=== PATIENT | female | born 1925 | race Caucasian/White ===

== ENCOUNTER → 2016-05-17 | Outpatient (CLI) | payer OTHER ==
[~2016-05-17] MED LIST: ACET-1311 PO; AMLO-110 PO; ASPI81TA28 PO; BIOT1TAB5 PO; CALC-20 PO; CLC100X PO; CYAN100020 PO; DONE10TA12 PO; EFF75 PO; GLGKIT; HALO5INJ IM; HYDR-5688 PO; IBUP-1050 PO; INSDGI SC; INSUINJ4 SC; INSUINJ4 SQ; IPRASOL4 INH; LOSA50TA54 PO; LPT/40 PO; MELA3CAP PO; MOML PO; NMN5 PO; QUET1TAB30 PO; SKINCRE42 TOP; TRAM-10 PO; TRIA75TA53 PO; VENL150T33 PO; VENL37.593 PO; VITAOIN TOP
[2016-05-17 08:48] LABS: BASO % 0.4 %; BASO ABS # 0.04 K/uL (0-0.2); COMPLETE YES; HEMATOCRIT 38.4 % (37-47); IG% 0.2 %; LYMPH % 14.5 %; LYMPH ABS # 1.55 K/uL (1.2-3.4); MEAN CELL VOLUME 98.2 fL (80-100); MEAN CORPUSCULAR HEMOGLOBIN 32.7 pg (25-34); MEAN CORPUSCULAR HGB CONC 33.3 g/dl (32-36); MEAN PLATELET VOLUME 12.2 fL (7.4-10.4); MONO % 11.4 %; NEUT % 70.5 %; PLATELET COUNT 438 K/uL (130-400); RED BLOOD COUNT 3.91 M/uL (4.2-5.4); WHITE BLOOD COUNT 10.72 K/uL (4.8-10.8)
[2016-05-17 09:06] LABS: BLOOD UREA NITROGEN 30 mg/dl (7-18); BUN/CREATININE RATIO 21.7 (10-20); CALCIUM 9.7 mg/dl (8.5-10.1); CARBON DIOXIDE 25 mmol/L (21-32); CHLORIDE 104 mmol/L (98-107); GLUCOSE 129 mg/dl (70-99); POTASSIUM 3.7 mmol/L (3.5-5.1); SODIUM 142 mmol/L (136-145)
== END ==
LOC: C.LABUPHEI 12:40
PROVIDERS: ATTEND Family Medicine
DX: F01.51 Vascular dementia, unspecified severity, with behavioral disturbance (principal); S82.90XA Unspecified fracture of unspecified lower leg, initial encounter for closed fracture; X58.XXXA Exposure to other specified factors, initial encounter

== ENCOUNTER 2016-05-19 13:12 | Inpatient (IN) | payer OTHER ==
[~2016-05-19] VITALS: Ht 160 cm; Wt 71.1 kg
[~2016-05-19 13:12] MED LIST changes: -ACET-1311 PO; -AMLO-110 PO; -CLC100X PO; -EFF75 PO; -GLGKIT; -HALO5INJ IM; -HYDR-5688 PO; -INSDGI SC; -IPRASOL4 INH; -MELA3CAP PO; -MOML PO; -TRAM-10 PO
[2016-05-19] MEDS ORDERED: SODIUM CHLORIDE 0.9% 500ML 500 ML IV STA (13:51)
[2016-05-19] MEDS ORDERED: HALO5INJ IM (14:05)
[2016-05-19] MEDS ORDERED: ACET-1311 PO (14:05)
[2016-05-19] MEDS ORDERED: AMLO-110 PO (14:05)
[2016-05-19] MEDS ORDERED: GLGKIT (14:05)
[2016-05-19] MEDS ORDERED: EFF75 PO (14:05)
[2016-05-19] MEDS ORDERED: HYDR-5688 PO (14:05)
[2016-05-19] MEDS ORDERED: TRAM-10 PO (14:05)
[2016-05-19] MEDS ORDERED: INSDGI SC ×2 (14:05)
[2016-05-19] MEDS ORDERED: MELA3CAP PO (14:05)
[2016-05-19] MEDS ORDERED: CLC100X PO (14:05)
[2016-05-19] MEDS ORDERED: MOML PO (14:05)
[2016-05-19] MEDS ORDERED: IPRASOL4 INH (14:05)
--- NOTE | 2016-05-19 14:14 | DIAGNOSTIC IMAGING REPORT ---
CHEST ONE VIEW PORTABLE CLINICAL HISTORY: fever SHORTNESS OF BREATH COMPARISON STUDY: 03/06/2016 FINDINGS: The heart is borderline enlarged. There is diffuse elevation of the interstitium. The findings are consistent with either interstitial edema or a bilateral interstitial inflammatory process. Clinical and radiographic follow-up is recommended.[ IMPRESSION: Diffuse elevation of the interstitium, consistent with interstitial pulmonary edema, or a bilateral interstitial inflammatory process. Clinical and radiographic follow-up is recommended. Electronically signed by: Hasmukh Tolliver M.D. 05/19/2016 2:12 PM Dictated Date/Time: 05/19/2016 2:10 PM
[2016-05-19 14:33] LABS: ISTAT CREATININE 1.5 mg/dl (0.6-1.3); ISTAT HEMOGLOBIN 11.9 g/dl (12.0-16.0); ISTAT IONIZED CALCIUM 1.13 mmol/l (1.12-1.32)
[2016-05-19 14:38] LABS: HEMATOCRIT 36.9 % (37-47); MEAN CELL VOLUME 98.1 fL (80-100); MEAN CORPUSCULAR HEMOGLOBIN 32.2 pg (25-34); MEAN CORPUSCULAR HGB CONC 32.8 g/dl (32-36); MEAN PLATELET VOLUME 11.5 fL (7.4-10.4); PLATELET COUNT 380 K/uL (130-400); RED BLOOD COUNT 3.76 M/uL (4.2-5.4); WHITE BLOOD COUNT 23.89 K/uL (4.8-10.8)
[2016-05-19] MEDS ORDERED: CEFEPIME IV 1,000 MG in DEXTROSE 5% 100ML 100 ML IV STA (14:46)
[2016-05-19 14:51] LABS: BUN/CREATININE RATIO 19.9 (10-20); CALCIUM 9.7 mg/dl (8.5-10.1); CREATININE 1.6 mg/dl (0.60-1.20); MAGNESIUM 2.1 mg/dl (1.8-2.4); POTASSIUM 4.1 mmol/L (3.5-5.1)
[2016-05-19 14:52] LABS: PROTHROMBIN TIME (PATIENT) 11.1 SECONDS (9.0-12.0)
[2016-05-19 14:56] LABS: CKMB/CK RATIO 1.2 (0-3.0)
[2016-05-19] MEDS ORDERED: LEVAQUIN 500MG / 100ML D5W IV ONE (15:00)
[2016-05-19 15:11] LABS: BASO % 0.1 %; BASO ABS # 0.03 K/uL (0-0.2); COMPLETE YES; DOHLE BODIES OCCASIONAL; IG% 0.4 %; LYMPH % 2.7 %; LYMPH ABS # 0.64 K/uL (1.2-3.4); MONO % 7.5 %; NEUT % 89.3 %; VACUOLIZATION 1+
[2016-05-19] MEDS ORDERED: HEPARIN SOD 5000 UNIT/0.5 ML CARP SQ SCH (16:30)
[2016-05-19] MEDS ORDERED: HydrALAZINE HCL 20 MG/ML VIAL IV. PRN (16:30)
[2016-05-19] MEDS ORDERED: ALBUT/IPRATROP 3MG/0.5MG NEB 3 ML VIAL INH PRN (16:30)
[2016-05-19] MEDS ORDERED: POLYETHYLENE (MIRALAX) 17 GM PACK PO PRN (16:30)
[2016-05-19] MEDS ORDERED: MAGNESIUM HYDROXIDE SUSP 30 ML UDC PO PRN (16:30)
[2016-05-19] MEDS ORDERED: LEVOFLOXACIN / D5W 750 MG in PREMIXED IN D5W 150 ML IV SCH (16:30)
[2016-05-19] MEDS ORDERED: ONDANSETRON INJ 2 MG/ML 2 ML VIAL IV PRN (16:30)
[2016-05-19] MEDS ORDERED: ALUMINUM/MAGNESIUM/SIMETH (MAALOX MAX) 30 ML UDC PO PRN (16:30)
--- NOTE | 2016-05-19 17:11 | History and Physical ---
History & Physical Date & Time of Service: May 19, 2016 at 16:40 Chief Complaint: Shortness Of Breath Primary Care Physician: Shy Alberto History of Present Illness Source: family Patient is an 89 y/o female, with PMHx of HTN, DM, dementia, and depression, who presented to the ED because of chest congestion and fever since 05/17. History came from patient's daughter due to patient's mental status. Patient is a resident of [facility]. On Wednesday (05/17), patient started to experience chest congestion and a cough. +fever. Per family, patient was a resident of [facility] in February. At that time, patient was doing very well- eating, having conversations, and ambulating. Patient experienced a fibula fracture and was then transferred to [facility] mid March. Since that time, patient has been quickly declining. All she does is lay in bed and sleep. Per daughter, she has not had a conversation with patient since being transferred to [facility]. Family believes this is due to overdosing of Haldol. Patient follows with Dr. Ramirez for her dementia- daughter spoke with Dr. Ramirez and was instructed to discontinue Haldol. [facility] has been made aware and medication was discontinued on 05/15. No significant changes have been noted with the patient. Family does NOT want patient to receive Haldol. Per family, patient has not been complaining of any pain. With her fibula fracture, she would grab her leg and states it hurts. Patient followed up with Dr. Calvo ~2 weeks ago and was told everything "looks great." ROS could not be obtained due to patient' s status. Past Medical/Surgical History 1. HTN 2. DM 3. Dementia 4. Depression Family History No pertinent family history Social History Smoking Status: Never Smoker Drug Use: none Marital Status: Occupational Status: retired Immunizations History of Influenza Vaccine: Yes Influenza Vaccine Date: Mar 09, 2012 History of Tetanus Vaccine?: Yes History of Pneumococcal: daughter states unknown; will check with family Dr History of Hepatitis B Vaccine: No Multi-Drug Resistant Organisms History of MDRO: No Allergies Coded Allergies: Sulfa Antibiotics (Verified Allergy, Unknown, UNKNOWN, 05/19/16) Home Medications Scheduled Acetaminophen (Tylenol), 650 MG PO Q6H Amlodipine (Norvasc), 5 MG PO BID Aspirin (Aspirin Ec), 81 MG PO DAILY Biotin (Biotin), 1,000 MCG PO TID Calcium Carbonate-Vitamin D (Calcium 600 + D), 1 TAB PO DAILY Cyanocobalamin (Vitamin B12), 1,000 MCG PO DAILY Docusate Sodium (Docusate Sodium), 100 MG PO BID Donepezil Hydrochloride (Aricept), 10 MG PO DAILY Insulin Glargine (Lantus), 35 UNITS SC QPM Insulin Glargine (Lantus), 45 UNIT SC DAILY Ipratropium-Albuterol (Duoneb), 1 TREATMENT INH Q4H Losartan Potassium (Cozaar), 50 MG PO DAILY Melatonin (Melatonin), 3 MG PO HS Memantine (Namenda), 5 MG PO BID Quetiapine Fumarate (Seroquel), 12.5 MG PO HS Venlafaxine Hcl (Effexor), 75 MG PO TID Scheduled PRN Haloperidol Lactate (Haldol), 5 MG IM Q6H PRN for Agitation Hydrocodone/Acetaminophen 5MG/325MG ([place] 5MG/325MG), 2 TABLETS PO Q6H PRN for Pain Magnesium Hydroxide (Milk Of Magnesia), 30 ML PO for Constipation Tramadol (Ultram), 50 MG PO Q4H PRN for Pain Miscellaneous Medications Glucagon (Glucagon Emergency Kit) Physical Exam Vital Signs Date Time Temp Pulse Resp B/P Pulse Ox O2 Delivery O2 Flow Rate FiO2 05/19/16 14:56 90 26 151/65 94 Room Air 05/19/16 13:33 81 05/19/16 13:31 38.7 86 22 163/58 92 Room Air General Appearance: no apparent distress Head: normocephalic, atraumatic Eyes: PERRL ENT: + pertinent finding (gargling) Neck: supple Respiratory/Chest: no respiratory distress, no accessory muscle use Cardiovascular: regular rate, rhythm, no edema Abdomen/GI: normal bowel sounds, non tender, soft Extremities/Musculoskelatal: no pedal edema Neurologic/Psych: + disoriented, + pertinent finding (lies in bed yelling " help me", spontaneously opens eyes ) Skin: normal color, warm/dry, no rash Diagnostics Laboratory Results Results Past 24 Hours Test 05/19/16 14:00 05/19/16 14:10 1/24/17 14:13 05/19/16 14:17 Range/Units Influenza Type A Antigen Neg for Influ A NEG Influenza Type B Antigen Neg for Influ B NEG White Blood Count 23.89 4.8-10.8 K/uL Red Blood Count 3.76 4.2-5.4 M/uL Hemoglobin 12.1 12.0-16.0 g/dL Hematocrit 36.9 37-47 % Mean Corpuscular Volume 98.1 80-100 fL Mean Corpuscular Hemoglobin 32.2 25-34 pg Mean Corpuscular Hemoglobin Concent 32.8 32-36 g/dl Platelet Count 380 130-400 K/uL Mean Platelet Volume 11.5 7.4-10.4 fL Neutrophils (%) (Auto) 89.3 % Lymphocytes (%) (Auto) 2.7 % Monocytes (%) (Auto) 7.5 % Eosinophils (%) (Auto) 0.0 % Basophils (%) (Auto) 0.1 % Neutrophils # (Auto) 21.35 1.4-6.5 K/uL Lymphocytes # (Auto) 0.64 1.2-3.4 K/uL Monocytes # (Auto) 1.78 0.11-0.59 K/uL Eosinophils # (Auto) 0.00 0-0.5 K/uL Basophils # (Auto) 0.03 0-0.2 K/uL RDW Standard Deviation 48.1 36.4-46.3 fL RDW Coefficient of Variation 13.5 11.5-14.5 % Immature Granulocyte % (Auto) 0.4 % Immature Granulocyte # (Auto) 0.09 0.00-0.02 K/uL Toxic Vacuolation 1+ Dohle Bodies OCCASIONAL Prothrombin Time 11.1 9.0-12.0 SECONDS Prothromb Time International Ratio 1.0 0.9-1.1 Sodium Level 138 136-145 mmol/L Potassium Level 4.1 3.5-5.1 mmol/L Chloride Level 100 98-107 mmol/L Carbon Dioxide Level 24 21-32 mmol/L Anion Gap 14.0 11.0 16-25 mmol/L Blood Urea Nitrogen 32 7-18 mg/dl Creatinine 1.60 0.60-1.20 mg/dl Est Creatinine Clear Calc Drug Dose 23.3 ml/min Estimated GFR () 33.0 Estimated GFR (Non- 28.5 BUN/Creatinine Ratio 19.9 10-20 Random Glucose 143 70-99 mg/dl Calcium Level 9.7 8.5-10.1 mg/dl Magnesium Level 2.1 1.8-2.4 mg/dl Total Bilirubin 0.4 0.2-1 mg/dl Direct Bilirubin 0.2 0-0.2 mg/dl Aspartate Amino Transf (AST/SGOT) 28 15-37 U/L Alanine Aminotransferase (ALT/SGPT) 27 12-78 U/L Alkaline Phosphatase 78 45-117 U/L Total Creatine Kinase 233 26-192 U/L Creatine Kinase MB 2.9 0.5-3.6 ng/ml Creatine Kinase MB Ratio 1.2 0-3.0 Troponin I 0.027 0-0.045 ng/ml Pro-B-Type Natriuretic Peptide 3960 0-1800 pg/ml Total Protein 6.7 6.4-8.2 gm/dl Albumin 2.8 3.4-5.0 gm/dl Bedside Lactic Acid Venous 2.89 0.90-1.70 mmol/L Bedside Hemoglobin 11.9 12.0-16.0 g/dl Bedside Hematocrit 35 37-47 % Bedside Sodium 135 135-144 mEq/L Bedside Potassium 4.2 3.3-5.0 mEq/L Bedside Chloride 104 101-112 mEq/L Bedside Total CO2 25 24-31 mEq/l Bedside Blood Urea Nitrogen 28 7-18 mg/dl Bedside Creatinine 1.5 0.6-1.3 mg/dl Bedside Glucose (other) 149 70-99 mg/dl Bedside Ionized Calcium (Karel) 1.13 1.12-1.32 mmol/l Microbiology Results 05/19/16 Blood Culture, Received Pending 05/19/16 Blood Culture, Received Pending 05/19/16 Urine Culture, Received Pending Diagnostic Radiology CHEST ONE VIEW PORTABLE CLINICAL HISTORY: fever SHORTNESS OF BREATH COMPARISON STUDY: 03/06/2016 FINDINGS: The heart is borderline enlarged. There is diffuse elevation of the interstitium. The findings are consistent with either interstitial edema or a bilateral interstitial inflammatory process. Clinical and radiographic follow-up is recommended.[ IMPRESSION: Diffuse elevation of the interstitium, consistent with interstitial pulmonary edema, or a bilateral interstitial inflammatory process. Clinical and radiographic follow-up is recommended. Electronically signed by: Hasmukh Tollievr M.D. 05/19/2016 2:12 PM Dictated Date/Time: 05/19/2016 2:10 PM The status of this report is Signed. Draft = Not yet reviewed or approved by Radiologist. Signed = Reviewed and approved by Radiologist. EKG SMITA MOSELEY ID:[id number] 19-MAY-2016 14:10:53 [facility] Poor data quality, interpretation may be adversely affected Sinus rhythm with sinus arrhythmia with frequent , and consecutive Premature ventricular complexes ST & T wave abnormality, consider lateral ischemia Abnormal ECG When compared with ECG of 06-MAR-2016 04:34, Premature ventricular complexes are now Present 25mm/s 10mm/mV 150Hz 8.0 SP2 12SL 241 HD DYANA: 12 Referred by: Shy Cabreraglenn Unconfirmed Vent. rate 82 BPM NJ interval 148 ms QRS duration 82 ms QT/QTc 368/429 ms P-R-T axes 54 21 119 1927 (89 yr) Female Room: Loc:15 Studio Assistant:HUBER Rosenberg ind: Impression Assessment and Plan 89 y/o female, with PMHx of HTN, DM, dementia, and depression, who presented to the ED because of chest congestion and fever since 05/17 Elevated WBC and lactic acid, ?pulmonary source: - Admit med/surg - IV Levaquin + Zosyn - IV NSS @ 100ml/hr x1 bag - CXR- Diffuse elevation of the interstitium, consistent with interstitial pulmonary edema, or a bilateral interstitial inflammatory process -- Repeat CXR tomorrow AM - Diet- pureed with aspiration precautions - Lactic acid of 2.89 on admission, repeat - Influenza negative - MRSA swab - Follow CBC and PRP - Pending blood cultures - Pending U/A - Airway suction q4 hrs PRN HTN: - Continue Norvasc 5 mg PO daily - Hydralazine 10 mg IV PRN for SBP >170 or DBP >100 Dementia: - Continue Aricept 10 mg PO daily - Continue Namenda 5 mg PO BID - Continue Seroquel 12.5 mg PO HS - FAMILY DOES NOT WANT PATIENT TO RECEIVE HALDOL - Consult psychiatry, appreciate recommendations. Patient follows with Dr. Ramirez DM: - Continue Lantus 45 units SC daily - BSG ACHS - Sliding insulin scale Depression: - Continue Effexor 75 mg PO TID GI Prophylaxis: -Maalox PRN -IV Zofran PRN -Colace and/or Milk of Mag PRN DVT prophylaxis: -Heparin 5000 units SQ q12 hrs -CONCEPCION and SCDs Code Status: - LEVEL V, DNR/DNI Dispo: - From [facility]- family very unhappy with care. Family has been in contact with [place] to possibly get transferred there. Consult social worker clinical - Family is considering hospice- consult palliative care. At this time, family wants to continue patient's medications, OK with IV hydration and IV antibiotics Level of Care Med/Surg Resuscitation Status DO NOT RESUSCITATE VTE Prophylaxis VTE Risk Assessment Done? Y/N: Yes Risk Level: Moderate Given or contraindicated: Unfractionated heparin SQ, T.E.D. Stockings, SCD's
[2016-05-19] MEDS: SODIUM CHLORIDE 0.9% 1000ML 1,000 ML IV ONE ×2 (17:15→20:40)
[2016-05-19] MEDS ORDERED: PIPERACILL/TAZOBAC CONSULT ACTIVE PRN (17:45)
[2016-05-19 19:45] VITALS: BP 140/48; PULSE 76; TEMP 37.3; O2SAT 95; Ht 160 cm; Wt 71.1 kg
[2016-05-19] MEDS ORDERED: PIPERACILL/TAZOBAC IV 3.375 GM in DEXTROSE 5% 100ML IV ONE (20:00)
[2016-05-19] MEDS ORDERED: DEXTROSE 50% 50 ML SYR IV PRN (20:30)
[2016-05-19] MEDS ORDERED: GLUCAGON FOR INJ 1 MG VIAL SQ PRN (20:30)
[2016-05-19] MEDS ORDERED: GLUCOSE 10 TABS/TUBE PO PRN (20:30)
[2016-05-19] MEDS ORDERED: GLUCOSE 40% GEL 15 GM TUBE PO PRN (20:30)
--- NOTE | 2016-05-19 20:33 | EMERGENCY ROOM VISIT NOTE ---
History Report prepared by Chato: Nathaniel Stanley Under the Supervision of: Dr. Tom Bowles D.O. First contact with patient: 13:49 Chief Complaint: FEVER Stated Complaint: SHORTNESS OF BREATH History of Present Illness The patient is a 89 year old female who presents to the Emergency Room with complaints of a persistent fever beginning last night. Per the patients family, she comes from [facility] and began to have a fever last night and was put on supplementary oxygen last night. She has had difficulty eating and has been unable to communicate recently. The patient has also had difficulty swallowing and opening her eyes. They note she started to have a cough and shortness of breath 2 days ago. She recently had a chest x-ray at [facility] which they note was normal. She fractured her leg this past February and had been staying at [facility]. At [facility] she was able to talk somewhat. They note she was given large amounts of Haldol at [facility]. She is also on Seroquel. The patient is diabetic, and takes 1 Aspirin per day. The family notes she is DNR and they do not want feeding tubes. They are okay with antibiotics, and are concerned with keeping her comfortable. They add she has a history of dementia. Source of History: family Onset: last night Position: other (global) Quality: other (fever) Timing: other (persistent) Associated Symptoms: + SOB, + cough Note: The patient has had difficulty swallowing and opening her eyes. Review of Systems See HPI for pertinent positives & negatives. A total of 10 systems reviewed and were otherwise negative. Past Medical & Surgical Medical Problems: (1) Benign hypertension (2) Chest congestion (3) Elevated WBC count (4) Fever (5) Hyperlipidemia (6) Senile dementia Family History No pertinent family history Social History Smoking Status: Never Smoker Alcohol Use: none Drug Use: none Marital Status: Housing Status: lives with family Occupation Status: retired Current/Historical Medications Scheduled Acetaminophen (Tylenol), 650 MG PO Q6H Amlodipine (Norvasc), 5 MG PO BID Aspirin (Aspirin Ec), 81 MG PO DAILY Biotin (Biotin), 1,000 MCG PO TID Calcium Carbonate-Vitamin D (Calcium 600 + D), 1 TAB PO DAILY Cyanocobalamin (Vitamin B12), 1,000 MCG PO DAILY Docusate Sodium (Docusate Sodium), 100 MG PO BID Donepezil Hydrochloride (Aricept), 10 MG PO DAILY Insulin Glargine (Lantus), 35 UNITS SC QPM Insulin Glargine (Lantus), 45 UNIT SC DAILY Ipratropium-Albuterol (Duoneb), 1 TREATMENT INH Q4H Losartan Potassium (Cozaar), 50 MG PO DAILY Melatonin (Melatonin), 3 MG PO HS Memantine (Namenda), 5 MG PO BID Quetiapine Fumarate (Seroquel), 12.5 MG PO HS Venlafaxine Hcl (Effexor), 75 MG PO TID Scheduled PRN Haloperidol Lactate (Haldol), 5 MG IM Q6H PRN for Agitation Hydrocodone/Acetaminophen 5MG/325MG ([place] 5MG/325MG), 2 TABLETS PO Q6H PRN for Pain Magnesium Hydroxide (Milk Of Magnesia), 30 ML PO for Constipation Tramadol (Ultram), 50 MG PO Q4H PRN for Pain Miscellaneous Medications Glucagon (Glucagon Emergency Kit) Allergies Coded Allergies: Sulfa Antibiotics (Verified Allergy, Unknown, UNKNOWN, 05/19/16) Physical Exam Vital Signs Date Time Temp Pulse Resp B/P Pulse Ox O2 Delivery O2 Flow Rate FiO2 05/19/16 14:56 90 26 151/65 94 Room Air 05/19/16 13:33 81 05/19/16 13:31 38.7 86 22 163/58 92 Room Air Physical Exam GENERAL: Ill-appearing, laying on stretcher; disheveled. EYE EXAM: PERRL OROPHARYNX: no exudate, no erythema, lips, buccal mucosa, and tongue normal and mucous membranes are dry NECK: supple, no nuchal rigidity, no adenopathy, non-tender LUNGS: Clear to auscultation. Normal chest wall mechanics. Rhonchi noted bilaterally. HEART: no murmurs, S1 normal and S2 normal ABDOMEN: abdomen soft, non-tender, normo-active bowel sounds, no masses, no rebound or guarding. SKIN: no rashes and no bruising UPPER EXTREMITIES: upper extremities are grossly normal. LOWER EXTREMITIES: No pitting edema. Calves equal bilaterally and contract. NEURO EXAM: Alert; not following commands; intermittently moans to painful stimuli; moves upper extremities; intermittently opens eyes; moves lower extremities infrequently. Medical Decision & Procedures ER Provider Diagnostic Interpretation: Xray results per the radiologist and my interpretation. Other results have been interpreted by the radiologist and reviewed by me. CHEST ONE VIEW PORTABLE FINDINGS: The heart is borderline enlarged. There is diffuse elevation of the interstitium. The findings are consistent with either interstitial edema or a bilateral interstitial inflammatory process. Clinical and radiographic follow-up is recommended. IMPRESSION: Diffuse elevation of the interstitium, consistent with interstitial pulmonary edema, or a bilateral interstitial inflammatory process. Clinical and radiographic follow-up is recommended. Electronically signed by: Hasmukh Tolliver M.D. 05/19/2016 2:12 PM Dictated Date/Time: 05/19/2016 2:10 PM Laboratory Results 05/19/16 14:10 Red Blood Count 3.76, Mean Corpuscular Volume 98.1, Mean Corpuscular Hemoglobin 32.2, Mean Corpuscular Hemoglobin Concent 32.8, Mean Platelet Volume 11.5, Neutrophils (%) (Auto) 89.3, Lymphocytes (%) (Auto) 2.7, Monocytes (%) (Auto) 7.5, Eosinophils (%) (Auto) 0.0, Basophils (%) (Auto) 0.1, Neutrophils # (Auto) 21.35, Lymphocytes # (Auto) 0.64, Monocytes # (Auto) 1.78, Eosinophils # (Auto) 0.00, Basophils # (Auto) 0.03 05/19/16 14:10 Test 05/19/16 14:00 05/19/16 14:10 05/19/16 14:13 05/19/16 14:17 Influenza Type A Antigen Neg for Influ A (NEG) Influenza Type B Antigen Neg for Influ B (NEG) White Blood Count 23.89 K/uL (4.8-10.8) Red Blood Count 3.76 M/uL (4.2-5.4) Hemoglobin 12.1 g/dL (12.0-16.0) Hematocrit 36.9 % (37-47) Mean Corpuscular Volume 98.1 fL (80-100) Mean Corpuscular Hemoglobin 32.2 pg (25-34) Mean Corpuscular Hemoglobin Concent 32.8 g/dl (32-36) Platelet Count 380 K/uL (130-400) Mean Platelet Volume 11.5 fL (7.4-10.4) Neutrophils (%) (Auto) 89.3 % Lymphocytes (%) (Auto) 2.7 % Monocytes (%) (Auto) 7.5 % Eosinophils (%) (Auto) 0.0 % Basophils (%) (Auto) 0.1 % Neutrophils # (Auto) 21.35 K/uL (1.4-6.5) Lymphocytes # (Auto) 0.64 K/uL (1.2-3.4) Monocytes # (Auto) 1.78 K/uL (0.11-0.59) Eosinophils # (Auto) 0.00 K/uL (0-0.5) Basophils # (Auto) 0.03 K/uL (0-0.2) RDW Standard Deviation 48.1 fL (36.4-46.3) RDW Coefficient of Variation 13.5 % (11.5-14.5) Immature Granulocyte % (Auto) 0.4 % Immature Granulocyte # (Auto) 0.09 K/uL (0.00-0.02) Toxic Vacuolation 1+ Dohle Bodies OCCASIONAL Prothrombin Time 11.1 SECONDS (9.0-12.0) Prothromb Time International Ratio 1.0 (0.9-1.1) Est Creatinine Clear Calc Drug Dose 23.3 ml/min Estimated GFR () 33.0 Estimated GFR (Non- 28.5 BUN/Creatinine Ratio 19.9 (10-20) Calcium Level 9.7 mg/dl (8.5-10.1) Magnesium Level 2.1 mg/dl (1.8-2.4) Total Bilirubin 0.4 mg/dl (0.2-1) Direct Bilirubin 0.2 mg/dl (0-0.2) Aspartate Amino Transf (AST/SGOT) 28 U/L (15-37) Alanine Aminotransferase (ALT/SGPT) 27 U/L (12-78) Alkaline Phosphatase 78 U/L (45-117) Total Creatine Kinase 233 U/L (26-192) Creatine Kinase MB 2.9 ng/ml (0.5-3.6) Creatine Kinase MB Ratio 1.2 (0-3.0) Troponin I 0.027 ng/ml (0-0.045) Pro-B-Type Natriuretic Peptide 3960 pg/ml (0-1800) Total Protein 6.7 gm/dl (6.4-8.2) Albumin 2.8 gm/dl (3.4-5.0) Bedside Lactic Acid Venous 2.89 mmol/L (0.90-1.70) Bedside Hemoglobin 11.9 g/dl (12.0-16.0) Bedside Hematocrit 35 % (37-47) Bedside Sodium 135 mEq/L (135-144) Bedside Potassium 4.2 mEq/L (3.3-5.0) Bedside Chloride 104 mEq/L (101-112) Bedside Total CO2 25 mEq/l (24-31) Anion Gap 11.0 mmol/L (16-25) Bedside Blood Urea Nitrogen 28 mg/dl (7-18) Bedside Creatinine 1.5 mg/dl (0.6-1.3) Bedside Glucose (other) 149 mg/dl (70-99) Bedside Ionized Calcium (Karel) 1.13 mmol/l (1.12-1.32) Laboratory results per my review. Medications Administered Medications (Trade) Dose Ordered Sig/Jannet Route Start Time Stop Time Status Last Admin Dose Admin Sodium Chloride 500 ml @ 999 mls/hr Q31M STAT IV 05/19/16 13:51 05/19/16 14:21 DC 05/19/16 13:51 999 MLS/HR Cefepime HCl/ Dextrose (Maxipime IV/D5 100ml) 111.3 ml @ 200 mls/hr NOW STAT IV 05/19/16 14:46 05/19/16 15:19 DC 05/19/16 16:41 200 MLS/HR Levofloxacin (Levaquin / D5W) 500 mg NOW ONCE IV 05/19/16 15:00 05/19/16 15:01 DC 05/19/16 15:00 500 MG ECG Indication: other (fever) Rate (beats per minute): 82 Rhythm: sinus rhythm Findings: PVC (intermittent), other (poor baseline ) ED Course ED COURSE: Vital signs were reviewed and showed hypoxic and febrile The patients medical record was reviewed The above diagnostic studies were performed and reviewed. ED treatments and interventions as stated above. 1351: Ordered NSS 500 ml @ 999 mls/hr IV. 1355: The patient was evaluated in room B4B. A complete history and physical examination was performed. 1446: Ordered Cefepime HCl 1,000 mg/Dextrose 111.3 ml @ 200 mls/hr IV. 1500: Ordered Levofloxacin 500 mg IV. 1539: I updated the patient. 1550: I reviewed the patient's case with Dr. Geronimo Luke. They will evaluate the patient for further management. 1555: Upon reevaluation, the patient is hemodynamically stable.I discussed my findings with the patient and she understands and agrees with the treatment plan. Based on the patients age, coexisting illnesses, exam and lab findings the decision to treat as an inpatient was made. The patient remained stable while under my care. The patient will be evaluated for further management. Medical Decision Differential diagnosis: Etiologies such as viral syndrome, otitis, pharyngitis, pneumonia, influenza, meningitis, urinary tract infection, sepsis, bacteremia, as well as others were entertained. Patient is an 89-year-old female who is a resident at [facility] who presents the ER for altered mental status which has been present for the past 3 weeks associated with a fever and cough. Upon presentation she has a temperature 39 3 Celsius. Leukocytosis of 24,000. Creatinine was at 1.6 which is consistent with her baseline. Lactate is elevated at 2.9. Troponin is detectable but not positive. BNP is elevated at 4000. Chest x-ray just support pulmonary congestion without focal infiltrate. Influenza A and B were negative. With her fever I did elect to treat her with IV cefepime and Levaquin. Pulse ox was 89% on room air. She remained on 2 L. I do believe that this is likely multifactorial with combination of slightly volume overloaded along with respiratory infection. I did not diurese her as she was stable. Family was updated bedside. Patient was admitted to internal medicine for further workup. There is no reported falls or head trauma. I did not CT her head at this time since she has been this way for the past 3 weeks. Consults Time Called: 1546 Consulting Physician: Dr. Geronimo Luke Returned Call: 1550 I reviewed the patient's case with Dr. Geronimo Luke. They will evaluate the patient for further management. Impression Primary Impression: Sepsis Additional Impressions: Leukocytosis Pulmonary edema Scribe Attestation The scribe's documentation has been prepared under my direction and personally reviewed by me in its entirety. I confirm that the note above accurately reflects all work, treatment, procedures, and medical decision making performed by me. Departure Information Dispostion Being Evaluated By Hospitalist Referrals Shy Alberto (PCP) Patient Instructions My [facility] Problem Qualifiers Primary Impression: Sepsis Sepsis type: sepsis due to unspecified organism Qualified Codes: A41.9 - Sepsis, unspecified organism Additional Impressions: Leukocytosis Leukocytosis type: unspecified Qualified Codes: D72.829 - Elevated white blood cell count, unspecified Pulmonary edema Chronicity: acute Qualified Codes: J81.0 - Acute pulmonary edema
[2016-05-19 20:34] VITALS: BP 149/99; PULSE 80; TEMP 37.4; O2SAT 94
[2016-05-19] MEDS: MEMANTINE 5 MG TAB PO SCH (20:40)
[2016-05-19] MEDS: INSULIN ASPART 100 UNITS/ML 3 ML PEN SC SCH (20:41)
[2016-05-19] MEDS: AMLODIPINE BESYLATE 5 MG TAB PO SCH (20:41)
[2016-05-19] MEDS ORDERED: PIPERACILL/TAZOBAC IV 3.375 GM in DEXTROSE 5% 100ML 100 ML IV SCH (21:00)
[2016-05-19] MEDS ORDERED: QUETIAPINE FUMARATE 25 MG TAB PO SCH (21:00)
[2016-05-19] MEDS: VENLAFAXINE HCL 50 MG TAB PO SCH (21:31)
--- NOTE | 2016-05-19 21:51 | Progress Note ---
Progress Note RESIDENT CLAIMS ANALYST COVERAGE NOTE Called by pharmacy that patient has a prolonged QTc interval on EKG (580) and is on Levaquin, Quetiapine, and Seroquel Chart r/v: Received Haldol prior to admission Will order EKG for tomorrow to re-asses/evaluate - No further Haldol as per H&P Resident Tracking Resident Involvement: Package Sealer Machine Coverage Note Care Provided: Adult Hospital Medicine
[2016-05-19 21:52] LABS: URINE APPEARANCE CLOUDY (CLEAR); URINE BILIRUBIN NEG (NEG); URINE COLOR DK YELLOW; URINE EPITHELIAL CELL AUTO >30 /lpf (0-5); URINE NITRITE NEG (NEG); URINE SPECIFIC GRAVITY 1.026 (1.000-1.030); UROBILINOGEN NEG (NEG); ZZURINE CULT IF INDIC CATH YES
[2016-05-19 21:59] LABS: MANUAL MICROSCOPIC REQUIRED? NO; REVIEW REQ? YES
[2016-05-19 22:06] LABS: URINE PATH CASTS 0-3 GRANULAR CASTS /lpf (0)
[2016-05-19] MEDS ORDERED: VANCOMYCIN INJ 1,000 MG in SODIUM CHLORIDE 0.9% 250ML 250 ML IV ONE (22:59)
[2016-05-19] MEDS ORDERED: VANCOMYCIN INJ 1,300 MG in SODIUM CHLORIDE 0.9% 500ML 500 ML IV SCH (23:30)
[2016-05-20 00:06] VITALS: BP 152/54; PULSE 72; TEMP 38.2; O2SAT 90
[2016-05-20] MEDS: ACETAMINOPHEN 325 MG TAB PO PRN ×2 (00:32→14:58)
[2016-05-20 01:09] VITALS: TEMP 37.6
[2016-05-20] MEDS ORDERED: VANCOMYCIN CONSULT ACTIVE PRN (01:45)
[2016-05-20] MEDS: PIPERACILL/TAZOBAC IV 3.375 GM in DEXTROSE 5% 100ML IV SCH ×3 (03:29→17:53)
[2016-05-20] MEDS: HEPARIN SOD 5000 UNIT/0.5 ML CARP SQ SCH ×2 (05:58→17:54)
[2016-05-20 06:51] VITALS: BP 153/73; PULSE 57; TEMP 37.1; O2SAT 87
[2016-05-20 07:15] VITALS: O2SAT 92
--- NOTE | 2016-05-20 07:25 | Clinical Documentation Query ---
CLINICAL DOCUMENTATION QUERY 89 year old female who presents to the Emergency Room with complaints of a persistent fever and SOB. Current documentation includes Elevated WBC and lactic acid, ?pulmonary source. Query #1/3 In your clinical opinion is this patient being managed for: (X ) Suspected/Likely Aspiration pneumonia and/or MRSA pneumonia ( ) Other explanation of clinical findings (Please Explain) ( ) Unable to determine (Please Define) ( ) Need to Discuss ( ) Not Agree The medical record reflects the following clinical findings, treatment, and risk factors. Clinical Indicators: As above. ED notes she has difficulty swallowing and opening her eyes, been on large doses of Haldol and also on Seroquel. +MRSA swab, WBC's 23.89, Lactic acid 2.89 Treatment: Airway suction q4 hrs PRN, Diet- pureed with aspiration precautions, IV Vancomycin, IV Zosyn, Risk Factors: Age, ?aspiration, ?over sedation, difficulty swallowing, dementia, and snf residence. Query #2/3 In your clinical opinion is this patient being managed for: (X ) Sepsis in setting of aspiration and/or MRSA HCAP ( ) Other explanation of clinical findings (Please Explain) ( ) Unable to determine (Please Define) ( ) Need to Discuss ( ) Not Agree The medical record reflects the following clinical findings, treatment, and risk factors. Clinical Indicators: Leukocytosis 23.89, fever 38.7, elevated serum lactic acid 2.89, ?MARLENE creatinine 1.60, Treatment: aspiration precautions, IV Vancomycin, IV Zosyn, IVF bolus, Risk Factors: Age, ?pneumonia, MRSA swab Query #3/3 In your clinical opinion is this patient being managed for: (X ) MARLENE in setting of sepsis and pneumonia treated with IVF bolus and daily PRP's. ( ) Other explanation of clinical findings (Please Explain) ( ) Unable to determine (Please Define) ( ) Need to Discuss ( ) Not Agree The medical record reflects the following clinical findings, treatment, and risk factors. Clinical Indicators: Presenting BUN 32, Creatinine 1.60, & GFR 28.5. Lactic acid 2.89 Treatment: IVF bolus and daily PRP's. Risk Factors: Age, ?sepsis, ?pneumonia Please clarify and document your clinical opinion in the progress notes and discharge summary. Terms such as "probable", "suspected", "likely", "questionable", "possible", or "still to be ruled out" are acceptable. IF IN AGREEMENT, YOU MUST DOCUMENT ABOVE DIAGNOSTIC STATEMENT IN DAILY PROGRESS NOTES AND DISCHARGE SUMMARY. This document is not part of the patient's record. Thank You, Heri Velez, DONNY [phone]
--- NOTE | 2016-05-20 07:34 | DIAGNOSTIC IMAGING REPORT ---
CHEST ONE VIEW PORTABLE HISTORY: CXR follow-up- infection vs pulmonary edema COMPARISON: Chest 05/19/2016. FINDINGS: There is no left lower lobe consolidation. The heart is stable in size. Mild diffuse interstitial thickening remains unchanged. No pneumothorax. No pleural effusions. IMPRESSION: A new left lower lobe consolidation which likely represents a pneumonia. Recommend follow-up to complete resolution. Electronically signed by: Zan Spears M.D. 05/20/2016 7:32 AM Dictated Date/Time: 05/20/2016 7:30 AM
[2016-05-20 07:48] LABS: HEMATOCRIT 33.6 % (37-47); MEAN CORPUSCULAR HEMOGLOBIN 32.1 pg (25-34); MEAN CORPUSCULAR HGB CONC 32.7 g/dl (32-36); PLATELET COUNT 279 K/uL (130-400); RED BLOOD COUNT 3.43 M/uL (4.2-5.4); WHITE BLOOD COUNT 16.37 K/uL (4.8-10.8)
[2016-05-20 08:18] LABS: BUN/CREATININE RATIO 19.1 (10-20); CALCIUM 8.7 mg/dl (8.5-10.1); CREATININE 1.5 mg/dl (0.60-1.20); POTASSIUM 3.8 mmol/L (3.5-5.1)
[2016-05-20] MEDS: VENLAFAXINE HCL 50 MG TAB PO SCH ×2 (08:30→14:03)
[2016-05-20] MEDS: MEMANTINE 5 MG TAB PO SCH (08:32)
[2016-05-20] MEDS: AMLODIPINE BESYLATE 5 MG TAB PO SCH (08:32)
[2016-05-20] MEDS ORDERED: ASPIRIN 81 MG CHEW PO SCH (09:00)
[2016-05-20] MEDS ORDERED: ASPIRIN 81 MG ECTAB PO SCH (09:00)
[2016-05-20] MEDS ORDERED: DONEPEZIL HCL 10 MG TAB PO SCH (09:00)
[2016-05-20] MEDS ORDERED: VANCOMYCIN INJ 1,000 MG in SODIUM CHLORIDE 0.9% 250ML 250 ML IV SCH (09:00)
[2016-05-20] MEDS ORDERED: LANTUS PER UNIT CHARGE SC SCH (09:00)
[2016-05-20] MEDS: INSULIN ASPART 100 UNITS/ML 3 ML PEN SC SCH ×3 (09:23→17:34)
[2016-05-20] MEDS ORDERED: LEVOFLOXACIN 250MG / D5W IV SCH (11:00)
--- NOTE | 2016-05-20 11:47 | Pharmacy Progress Note ---
Pharmacy Antibiotic Consult Date of Service: May 20, 2016. Pharmacy Dosing Scope Pharmacy is consulted to initiate vancomycin IV dosing therapy, order appropriate labs and adjust drug dose/frequency. Subjective The patient is a 89 year old female admitted on May 19, 2016 at 16:40 with pneumonia. There is a question if the pneumonia is hospital acquired or aspiration as the patient appears very sedated. The patient has a history of being at the [facility]. Objective Height (Feet): 5 Height (Inches): 3.00 Weight (Kilograms): 71.100 Lab Results (24hrs): Laboratory Tests Test 05/19/16 14:10 05/20/16 07:35 BUN/Creatinine Ratio 19.9 19.1 Blood Urea Nitrogen 32 mg/dl 29 mg/dl Creatinine 1.60 mg/dl 1.50 mg/dl White Blood Count 23.89 K/uL 16.37 K/uL Red Blood Count 3.76 M/uL Hemoglobin 12.1 g/dL Hematocrit 36.9 % Mean Corpuscular Volume 98.1 fL Mean Corpuscular Hemoglobin 32.2 pg Mean Corpuscular Hemoglobin Concent 32.8 g/dl Platelet Count 380 K/uL Mean Platelet Volume 11.5 fL Neutrophils (%) (Auto) 89.3 % Lymphocytes (%) (Auto) 2.7 % Monocytes (%) (Auto) 7.5 % Eosinophils (%) (Auto) 0.0 % Basophils (%) (Auto) 0.1 % Neutrophils # (Auto) 21.35 K/uL Lymphocytes # (Auto) 0.64 K/uL Monocytes # (Auto) 1.78 K/uL Eosinophils # (Auto) 0.00 K/uL Basophils # (Auto) 0.03 K/uL Micro Results: RUN DATE: 05/19/16 [facility] LAB PAGE 1 RUN TIME: 4 Specimen Inquiry PATIENT: SMITA ECHAVARRIA LOC: [facility] # : [id number] AGE/SX: 89/F ROOM: [facility] REG : 05/19/[address]: Geronimo Luke D.OAnil : 1925 BED: 2 DIS : STATUS: ADM IN TLOC: SPEC #: [id number] LEELA: 05/19/16 STATUS: COMP REQ #: [id number] RECD: 05/19/[address]: Keily Saleem PA-C SOURCE: NASAL ENTR: 05/19/[address]: Geronimo Luke D.OAnil SPDESC: Kimmy Reyes, Shy Garcia ORDERED: MRSA DNA COMMENTS: Has Specimen Been Obtained/Collected? Y Procedure Result Verified Site MRSA DNA (NASAL SWAB) Final 05/19/16-2153 Specimen Positive for MRSA by DNA Probe Phoned results to SHIKHA SALAS on 05/19/16 at 2151 by Sandy Hampton. Results were verbalized back to IRIS. Assessment & Plan Ms Echavarria is an 89 year old female who presents with chest congestion and fever. She has recently been lethargic and unable to have conversations with her family. Loading dose: vancomycin 1300 (18 mg/kg) mg IV X 1 dose then received level of 15.8 mg/dL at 11 AM Give vancomycin 1050 mg IV x 1 (15 mg/kg/dose) then recheck random level tomorrow morning. Currently vancomycin appears appropriate due the patient's recent fevers and positive MRSA nasal swab. ZOSYN: Zosyn 3.375 gm IV x 1 then Zosyn 3.375 gm IV q8 hours due to creatinine clearance > 20 ml/min. Pharmacy will continue to follow and will adjust dose/frequency as necessary. Thank you
[2016-05-20] MEDS ORDERED: VANCOMYCIN INJ 1,050 MG in SODIUM CHLORIDE 0.9% 250ML 250 ML IV ONE (12:00)
--- NOTE | 2016-05-20 15:10 | Progress Note ---
Subjective Date of Service: May 20, 2016. Subjective Pt evaluation today including: conversation w/ patient, conversation w/ family , physical exam, chart review, lab review, review of studies, review of inpatient medication list Pt difficult to arouse Just yells help me No discernible distress Family at bedside All questions answered Problem List Medical Problems: (1) Leukocytosis Status: Acute (2) Pulmonary edema Status: Acute (3) Sepsis Status: Acute Review of Systems Unable to obtain due to severe dementia Objective Vital Signs Date Time Temp Pulse Resp B/P Pulse Ox O2 Delivery O2 Flow Rate FiO2 05/20/16 07:59 Nasal Cannula 3.0 05/20/16 07:15 92 Nasal Cannula 3.0 05/20/16 06:51 37.1 57 18 153/73 87 Nasal Cannula 2.0 05/20/16 01:09 37.6 05/20/16 00:06 38.2 72 18 152/54 90 Room Air 05/19/16 20:34 37.4 80 18 149/99 94 Room Air 05/19/16 19:45 37.3 76 20 140/48 95 Room Air 05/19/16 18:56 38.1 98 20 149/59 95 05/19/16 18:45 38.1 05/19/16 16:44 98 20 149/59 95 Room Air Physical Exam General Appearance: WD/WN, no apparent distress Neck: supple, no adenopathy Respiratory/Chest: chest non-tender, lungs clear, normal breath sounds Cardiovascular: no edema, no gallop Abdomen: non tender, soft Laboratory Results Last 24 Hours Test 05/19/16 20:14 05/19/16 20:40 05/19/16 21:30 05/20/16 07:28 Lactic Acid Level 2.0 mmol/L Bedside Glucose 132 mg/dl 127 mg/dl Urine Color DK YELLOW Urine Appearance CLOUDY Urine pH 5.0 Urine Specific Greene 1.026 Urine Protein 2+ Urine Glucose (UA) NEG Urine Ketones TRACE Urine Occult Blood 2+ Urine Nitrite NEG Urine Bilirubin NEG Urine Urobilinogen NEG Urine Leukocyte Esterase TRACE Urine WBC (Auto) 5-10 /hpf Urine RBC (Auto) 0-4 /hpf Urine Hyaline Casts (Auto) /lpf Urine Epithelial Cells (Auto) >30 /lpf Urine Bacteria (Auto) 3+ Urine Renal Epithelial Cells /lpf Urine Pathogenic Casts 0-3 GRANULAR CASTS /lpf Urine Yeast (Auto) Test 05/20/16 07:35 05/20/16 10:57 05/20/16 11:40 White Blood Count 16.37 K/uL Red Blood Count 3.43 M/uL Hemoglobin 11.0 g/dL Hematocrit 33.6 % Mean Corpuscular Volume 98.0 fL Mean Corpuscular Hemoglobin 32.1 pg Mean Corpuscular Hemoglobin Concent 32.7 g/dl RDW Standard Deviation 49.1 fL RDW Coefficient of Variation 13.7 % Platelet Count 279 K/uL Mean Platelet Volume 11.0 fL Sodium Level 141 mmol/L Potassium Level 3.8 mmol/L Chloride Level 106 mmol/L Carbon Dioxide Level 22 mmol/L Anion Gap 13.0 mmol/L Blood Urea Nitrogen 29 mg/dl Creatinine 1.50 mg/dl Est Creatinine Clear Calc Drug Dose 24.5 ml/min Estimated GFR () 35.7 Estimated GFR (Non- 30.8 BUN/Creatinine Ratio 19.1 Random Glucose 131 mg/dl Calcium Level 8.7 mg/dl Random Vancomycin Level 15.8 mcg/ml Bedside Glucose 208 mg/dl Assessment and Plan 89 y/o female, with PMHx of HTN, DM, dementia, and depression, who presented to the ED because of chest congestion and fever since 05/17 ?Aspiration PNA and/or MRSA PNA - Elev WBC and lactic acid - IV Levaquin + Zosyn - IV NSS @ 100ml/hr x1 bag - CXR- Diffuse elevation of the interstitium, consistent with interstitial pulmonary edema, or a bilateral interstitial inflammatory process -- Repeat CXR tomorrow AM - Diet- pureed with aspiration precautions - Influenza negative - MRSA swab - Follow CBC and PRP - Pending blood cultures - Airway suction q4 hrs PRN Sepsis in setting of aspiration PNA please see above MARLENE in setting of sepsis and PNA treated with IVF and daily PRPs HTN: - Continue Norvasc 5 mg PO daily - Hydralazine 10 mg IV PRN for SBP >170 or DBP >100 Dementia: - Continue Aricept 10 mg PO daily - Continue Namenda 5 mg PO BID - Continue Seroquel 12.5 mg PO HS - FAMILY DOES NOT WANT PATIENT TO RECEIVE HALDOL - Consult psychiatry, appreciate recommendations. Patient follows with Dr. Ramirez DM: - Continue Lantus 45 units SC daily - BSG ACHS - Sliding insulin scale Depression: - Continue Effexor 75 mg PO TID GI Prophylaxis: -Maalox PRN -IV Zofran PRN -Colace and/or Milk of Mag PRN DVT prophylaxis: -Heparin 5000 units SQ q12 hrs -CONCEPCION and SCDs Code Status: - LEVEL V, DNR/DNI
[2016-05-20 15:30] VITALS: BP 156/56; PULSE 108; TEMP 38; O2SAT 81
[2016-05-20] MEDS ORDERED: LORAZEPAM INJ 0.5 MG in SYRINGE 0.25 ML IV ONE (16:30)
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
[2016-05-20] MEDS ORDERED: NURSING VERBAL MED ORDER ONE ×2 (16:45→18:45)
[2016-05-20] MEDS ORDERED: IBUPROFEN 200 MG TAB PO ONE (17:00)
[2016-05-20] MEDS ORDERED: MoRPHine SULFATE 2 MG/ML CARP IV PRN (18:45)
[2016-05-20] MEDS ORDERED: LORAZEPAM 2 MG/ML 1 ML VIAL IV PRN (18:45)
[2016-05-20] MEDS: LORAZEPAM INJ 0.5 MG in SYRINGE 0.75 ML IV PRN ×2 (19:45→22:03)
[2016-05-20] MEDS ORDERED: GLYCOPYRROLATE INJ 0.2 MG/ML VIAL IV PRN (20:15)
[2016-05-20] MEDS: MoRPHine SULFATE 4 MG/ML 1 ML CARP\\VIAL IV PRN ×2 (20:35→22:04)
[2016-05-20] MEDS: SCOPOLAMINE 1.5 MG TDSY TD SCH (20:51)
[2016-05-20] MEDS: CHECK SCOPOLAMINE PATCH PLACEMENT SCH (22:53)
[2016-05-21] MEDS: MoRPHine SULF/NSS 250MG/250ML 250 ML IV PRN ×4 (00:01→07:00)
[2016-05-21] MEDS: CHECK SCOPOLAMINE PATCH PLACEMENT SCH ×3 (07:41→23:38)
[2016-05-21] MEDS ORDERED: VENLAFAXINE HCL XR 150 MG CAPXR PO SCH (09:00)
[2016-05-21] MEDS ORDERED: VENLAFAXINE HCL XR 37.5 MG CAPXR PO SCH (09:00)
--- NOTE | 2016-05-21 11:13 | Palliative Care Consultation ---
Consultation Date of Consultation: May 21, 2016. Requesting Physician: Keily Saleem PA-C Attending Physician: Dr. Louie Reason for Consultation: Symptom management, possible hospice History of Present Illness This 89 year old female patient presented to the ED two days ago with complaints of chest congestive and fever since 05/17. Patient had a fibula fracture in March and was moved from [facility] to the [facility] and has since then had a rapid decline. The patient's daughter believes that she was being given too much Haldol. In the ED, she had an elevated WBC and lactic acid , CXR showed interstitial pulmonary edema vs. inflammatory process. She was admitted to med/surg and started on antibiotics. The patient is severely confused with a history of dementia and depression. She was seen by psychiatry who made recommendations. Overall, though, this patient is decompensating and declining rapidly. Yesterday, she was constantly yelling out in pain and discomfort. She was placed on a morphine gtt by Dr. Louie this morning and is much more comfortable at this time. Family is wanting to take patient home on hospice. Palliative care consulted to assist. I met with the patient and her family in the room (son, Mac, daughter/POA, Liza and her Yasmin). The patient is mostly obtunded at this time, did wince a little while I was doing my assessment, but no purposeful response. Does not open eyes or follow commands. She is currently on a morphine gtt at 2mg/hr and appears quite comfortable. Her daughter/POA and son both agree that they would like to get the patient home with hospice. I discussed hospice and their role. The family would provide 24 hour care. They also understand that given the patient's current condition she could have only hours to days left. I did explain that of course there is a risk of the patient dying in transport, they understand and would still like to get the patient home. Past Medical/Surgical History Medical History: Hypertension Diabetes mellitus Dementia Depression Social History Smoking Status: Never Smoker History of Alcohol Use: No Drug Use: none Marital Status: Occupation Status: retired Review of Systems unable to obtain Allergies Coded Allergies: Sulfa Antibiotics (Verified Allergy, Unknown, UNKNOWN, 05/19/16) Medications Current Inpatient Medications Medications (Trade) Dose Ordered Sig/Jannet Route Start Time Stop Time Status Last Admin Dose Admin Albuterol/ Ipratropium 3 ml 3 ml Q4R PRN INH 05/19/16 16:30 06/18/16 16:29 Lorazepam/Syringe (Ativan Inj/ Syringe) 1 ml @ 1 mls/min Q2H PRN IV 05/20/16 18:45 06/19/16 18:44 05/20/16 22:03 1 MLS/MIN Lorazepam (Ativan Inj) 0.5 mg Q2H PRN IV 05/20/16 18:45 06/19/16 18:44 Morphine Sulfate (MoRPHine SULFATE INJ) 2-4mg PRN IV q2h for pa... Q2H PRN IV 05/20/16 20:45 06/03/16 20:44 05/20/16 22:04 4 MG Scopolamine (Transderm-Scop Patch) 1.5 mg Q72H TD 05/20/16 21:00 06/19/16 20:14 05/20/16 20:51 1.5 MG Miscellaneous (Remove Transderm-Scop Patch) 1 ea Q72H N/A 05/23/16 20:59 06/22/16 20:14 Miscellaneous Information (Check Scopolamine Patch Placement) 1 ea QS N/A 05/21/16 00:00 06/20/16 00:00 05/21/16 07:41 1 EA Glycopyrrolate 0.2 mg 0.2 mg Q6H PRN IV 05/20/16 20:15 06/19/16 20:14 Morphine Sulfate/ Dextrose (Morphine Sulf/ Nss 250MG/250ML) 250 ml @ 2 mls/hr Q24H PRN IV 05/20/16 22:45 06/03/16 22:44 05/21/16 07:00 8 MLS/HR Physical Exam Date Time Temp Pulse Resp B/P Pulse Ox O2 Delivery O2 Flow Rate FiO2 05/21/16 07:47 Room Air 05/21/16 00:00 Room Air 05/20/16 20:00 Room Air 05/20/16 15:30 38.0 108 22 156/56 81 Nasal Cannula 3.0 05/20/16 15:22 Nasal Cannula 3.0 General Appearance: no apparent distress Eyes: PERRL (3mm) Neck: no JVD Respiratory: no respiratory distress, no accessory muscle use, + decreased breath sounds Cardiovascular: regular rate, rhythm, + normal peripheral pulses, + pertinent finding (trace bilateral lower extremity edema) Abdomen: normal bowel sounds, soft Neurologic/Psychiatric: + pertinent finding (obtunded) Skin: + pallor Laboratory Results Last 24 Hours Test 05/20/16 10:57 05/20/16 11:40 05/20/16 16:44 Random Vancomycin Level 15.8 mcg/ml Bedside Glucose 208 mg/dl 144 mg/dl Assessment & Plan Palliative Performance Scale: 10 % Problem list: Altered mental status, now obtunded ?aspiration Pneumonia Dementia Depression Sepsis MARLENE Goals of care (Z51.5) Palliative care plan: As discussed with patient's son, daughter/POA, and [id number], the goal is for patient to go home with hospice. The family understands the patient has hours to days to live. [facility] to come in this afternoon to evaluation patient to go home with hospice. Family to provide 24 hour care. I am not in a hurry at this time to convert the patient over to different medication route until hospice is able to see her. If she's going to go home, I will make recommendations. Thank you kindly for this consult. 1400: Patient is beginning to mottle and respirations more shallow. Having periods of apnea. Transfer not likely to be possible, family aware. Hospice outside sales representative in to see patient and speak with family-- agrees that patient is declining rapidly. Now on morphine 8mg/hr IV.
[2016-05-21 14:57] VITALS: BP 110/50; PULSE 97; TEMP 39.1; O2SAT 70
[2016-05-21] MEDS ORDERED: ACETAMINOPHEN 650 MG SUPP PR PRN (15:00)
--- NOTE | 2016-05-21 15:51 | Progress Note ---
Subjective Date of Service: May 21, 2016. Subjective Pt evaluation today including: conversation w/ patient, conversation w/ family , physical exam, chart review, lab review, review of studies, conversation w/ php consultant, review of inpatient medication list Resting in bed Somnolent Noncommunicative Problem List Medical Problems: (1) Leukocytosis Status: Acute (2) Pulmonary edema Status: Acute (3) Sepsis Status: Acute Review of Systems Unable to obtain due to dementia and somnolent state Objective Vital Signs Date Time Temp Pulse Resp B/P Pulse Ox O2 Delivery O2 Flow Rate FiO2 05/21/16 14:57 39.1 97 24 110/50 70 Room Air 05/21/16 07:47 Room Air 05/21/16 00:00 Room Air 05/20/16 20:00 Room Air Physical Exam General Appearance: WD/WN, no apparent distress Neck: supple, no adenopathy Respiratory/Chest: lungs clear, + decreased breath sounds Cardiovascular: no edema, no gallop Abdomen: non tender, soft Laboratory Results Last 24 Hours Test 05/20/16 16:44 Bedside Glucose 144 mg/dl Assessment and Plan 89 y/o female, with PMHx of HTN, DM, dementia, and depression, who presented to the ED because of chest congestion and fever since 05/17 ?Aspiration PNA and/or MRSA PNA - Elev WBC and lactic acid - IV Levaquin + Zosyn dced due to COMFORT MEASURES status - IV NSS @ 100ml/hr x1 bag - CXR- Diffuse elevation of the interstitium, consistent with interstitial pulmonary edema, or a bilateral interstitial inflammatory process - NPO due to aspiration risk - Influenza negative - MRSA swab Sepsis in setting of aspiration PNA please see above MARLENE in setting of sepsis and PNA treated with IVF HTN: - Dced meds due to COMFORT MEASURES Dementia DM: - Dced meds due to comfort measures Depression: - Dced meds due to comfort measures Code Status: - LEVEL V, DNR/DNI
[2016-05-21] MEDS ORDERED: LORAZEPAM INJ 0.5 MG in SYRINGE 0.25 ML IV STA (22:06)
[2016-05-22] MEDS ORDERED: NURSING VERBAL MED ORDER ONE ×7 (01:15→17:45)
--- NOTE | 2016-05-22 05:39 | Progress Note ---
Progress Note RESIDENT HISTORIOGRAPHY PROFESSOR COVERAGE Checked on patient multiple times overnight Seemed comfortable though occasionally had arm twitching / rapid movements ( which improved with Ativan) and gasping for air Titrated morphine drip up slowly, currently at 11mg/hour (was at 8 at beginning of shift) Both daughters present, agree she looks comfortable Mouth care provided by RN Will continue to monitor / titrate to comfort Resident Tracking Resident Involvement: Compensation Associate Coverage Note Care Provided: Adult Hospital Medicine
[2016-05-22] MEDS: CHECK SCOPOLAMINE PATCH PLACEMENT SCH ×3 (08:15→23:41)
[2016-05-22] MEDS: MoRPHine SULF/NSS 250MG/250ML 250 ML IV PRN (08:35)
--- NOTE | 2016-05-22 10:47 | Psychiatric Progress Notes ---
Psychiatric Progress Note Date of Service May 22, 2016. Notes ID: Patient reviewed with liaison nurse. Initial consult by Dr. Lam on 05/20 also reviewed. Family at bedside. CC: comfort measures HPI: Effexor was d/c'd as not taking PO, family reports breathing is less labored today and will not be transferred from [facility]. They have each other for support and expressed thanks to Dr. Ramirez. ROS: patient unable to complete MSE: unable to complete as patient has decreased responsiveness Imp: same as initial consult Plan: no way to truly assess for Effexor discontinuation syndrome offered support to family who are aware of services for themselves if needed at [facility] they decline list of grief support groups.
[2016-05-22] MEDS: LORAZEPAM INJ 0.5 MG in SYRINGE 0.75 ML IV PRN ×2 (13:50→18:15)
--- NOTE | 2016-05-22 14:11 | Progress Note ---
Subjective Date of Service: May 22, 2016. Subjective Pt evaluation today including: conversation w/ patient, physical exam, chart review, lab review, review of studies, review of inpatient medication list Problem List Medical Problems: (1) Leukocytosis Status: Acute (2) Pulmonary edema Status: Acute (3) Sepsis Status: Acute Objective Vital Signs Date Time Temp Pulse Resp B/P Pulse Ox O2 Delivery O2 Flow Rate FiO2 05/22/16 00:05 Room Air 05/21/16 20:05 Room Air 05/21/16 16:00 Room Air 05/21/16 14:57 39.1 97 24 110/50 70 Room Air Physical Exam General Appearance: WD/WN, no apparent distress Neck: supple, no adenopathy Respiratory/Chest: chest non-tender, lungs clear, normal breath sounds Cardiovascular: no edema, no gallop Abdomen: non tender, soft Neurologic/Psychiatric: + disoriented Assessment and Plan 89 y/o female, with PMHx of HTN, DM, dementia, and depression, who presented to the ED because of chest congestion and fever since 05/17 ?Aspiration PNA and/or MRSA PNA - Elev WBC and lactic acid - IV Levaquin + Zosyn dced due to COMFORT MEASURES status - IV NSS @ 100ml/hr x1 bag - CXR- Diffuse elevation of the interstitium, consistent with interstitial pulmonary edema, or a bilateral interstitial inflammatory process - NPO due to aspiration risk - Influenza negative - MRSA swab Sepsis in setting of aspiration PNA please see above MARLENE in setting of sepsis and PNA treated with IVF HTN: - Dced meds due to COMFORT MEASURES Dementia DM: - Dced meds due to comfort measures Depression: - Dced meds due to comfort measures Code Status: - LEVEL V, DNR/DNI
[2016-05-23] MEDS: MoRPHine SULF/NSS 250MG/250ML 250 ML IV PRN ×2 (01:04→16:42)
[2016-05-23] MEDS: CHECK SCOPOLAMINE PATCH PLACEMENT SCH ×2 (08:15→16:42)
[2016-05-23 11:45] VITALS: BP 110/50; PULSE 97; TEMP 39.1; O2SAT 70
--- NOTE | 2016-05-23 14:52 | Progress Note ---
Subjective Date of Service: May 23, 2016. Subjective Pt evaluation today including: conversation w/ patient, physical exam, chart review, lab review, review of studies, conversation w/ compliance consultant, review of inpatient medication list Problem List Medical Problems: (1) Leukocytosis Status: Acute (2) Pulmonary edema Status: Acute (3) Sepsis Status: Acute Review of Systems Unable to obtain due to sedation Objective Vital Signs Date Time Temp Pulse Resp B/P Pulse Ox O2 Delivery O2 Flow Rate FiO2 05/23/16 11:45 39.1 97 24 70 3.0 05/23/16 08:00 Room Air 05/23/16 00:05 Room Air 05/22/16 20:05 Room Air Physical Exam General Appearance: WD/WN, no apparent distress Neck: supple, no adenopathy Respiratory/Chest: lungs clear, normal breath sounds Cardiovascular: no gallop, no JVD Abdomen: non tender, soft Assessment and Plan 89 y/o female, with PMHx of HTN, DM, dementia, and depression, who presented to the ED because of chest congestion and fever since 05/17 ?Aspiration PNA and/or MRSA PNA - Elev WBC and lactic acid - IV Levaquin + Zosyn dced due to COMFORT MEASURES status - IV NSS @ 100ml/hr x1 bag - CXR- Diffuse elevation of the interstitium, consistent with interstitial pulmonary edema, or a bilateral interstitial inflammatory process - NPO due to aspiration risk - Influenza negative - MRSA swab Sepsis in setting of aspiration PNA please see above MARLENE in setting of sepsis and PNA treated with IVF HTN: - Dced meds due to COMFORT MEASURES Dementia DM: - Dced meds due to comfort measures Depression: - Dced meds due to comfort measures Code Status: - LEVEL V, DNR/DNI
[2016-05-23] MEDS ORDERED: NURSING VERBAL MED ORDER ONE (17:45)
[2016-05-23] MEDS ORDERED: ATROPINE SULFATE 1% OP SOLN 2 ML BTL PO PRN (18:00)
[2016-05-23] MEDS: SCOPOLAMINE 1.5 MG TDSY TD SCH (20:31)
[2016-05-24] MEDS: CHECK SCOPOLAMINE PATCH PLACEMENT SCH ×3 (00:30→16:23)
[2016-05-24] MEDS: MoRPHine SULF/NSS 250MG/250ML 250 ML IV PRN ×3 (07:56→23:05)
--- NOTE | 2016-05-24 11:09 | Progress Note ---
Subjective Date of Service: May 24, 2016. Subjective Pt evaluation today including: conversation w/ family, physical exam, chart review, lab review, review of studies, review of inpatient medication list Problem List Medical Problems: (1) Leukocytosis Status: Acute (2) Pulmonary edema Status: Acute (3) Sepsis Status: Acute Review of Systems Unable to obtain due to sedation Objective Vital Signs Date Time Temp Pulse Resp B/P Pulse Ox O2 Delivery O2 Flow Rate FiO2 05/24/16 08:00 Room Air 05/23/16 23:59 Room Air 05/23/16 16:20 Room Air 05/23/16 11:45 39.1 97 24 70 3.0 Physical Exam General Appearance: WD/WN, no apparent distress Neck: supple, no adenopathy Respiratory/Chest: lungs clear, + decreased breath sounds Cardiovascular: no edema, no gallop Abdomen: non tender, soft Assessment and Plan 89 y/o female, with PMHx of HTN, DM, dementia, and depression, who presented to the ED because of chest congestion and fever since 05/17 ?Aspiration PNA and/or MRSA PNA - Elev WBC and lactic acid - IV Levaquin + Zosyn dced due to COMFORT MEASURES status - CXR- Diffuse elevation of the interstitium, consistent with interstitial pulmonary edema, or a bilateral interstitial inflammatory process - NPO due to aspiration risk - Influenza negative - MRSA swab Sepsis in setting of aspiration PNA please see above MARLENE in setting of sepsis and PNA treated with IVF HTN: - Dced meds due to COMFORT MEASURES Dementia DM: - Dced meds due to comfort measures Depression: - Dced meds due to comfort measures Code Status: - LEVEL V, DNR/DNI
[2016-05-24] MEDS ORDERED: NURSING VERBAL MED ORDER ONE (22:45)
[2016-05-24] MEDS: LORAZEPAM INJ 0.5 MG in SYRINGE 0.75 ML IV PRN (23:04)
--- NOTE | 2016-05-25 11:01 | Death Summary ---
Summary of Admission Date May 19, 2016 at 16:40 Date & Time of May 25, 2016. 00:00 Cause of pneumonia, sepsis Hospital Course 89 y/o female, with PMHx of HTN, DM, dementia, and depression, who presented to the ED because of chest congestion and fever since 05/17/2016 ?Aspiration PNA and/or MRSA PNA Sepsis in setting of aspiration PNA MARLENE in setting of sepsis and PNA treated with IVF HTN: - Dced meds due to COMFORT MEASURES Dementia DM: - Dced meds due to comfort measures Depression: - Dced meds due to comfort measures Code Status: - LEVEL V, DNR/DNI I was called to sign the certificate today, Actually I did not personally seeing patient The previous physician before me was the Dr. Louie, I did get signout from Dr. Louie Patient was in mid night, on-call welder 2nd shift physician did not pronounced, did not sign certificate, patient was pronounced by nurse Because I got some signout from Dr. Louie, and Dr. Louie is not available today, I feel ok to sign the certificate for patient just do a favor for my colleague with my best knowledge of the patient's condition. And I also feel that I am the best available physician to sign the certificate Copy To Shy Alberto
== END 2016-05-25 | disposition expired | DRG 871 ==
LOC: ENRESERVDT → ENRESERVTM → EDBD 13:12 → C.EDB 13:13 → UNDOADMIN 16:40 → C.MED 16:40 → C.MS2W 23:43 → C.MED 23:43 → C.4E 05-23 12:13
PROVIDERS: ADMIT Internal Medicine; ATTEND Hospitalist
DX: A41.9 Sepsis, unspecified organism (principal); J69.0 Pneumonitis due to inhalation of food and vomit; N17.9 Acute kidney failure, unspecified; F05 Delirium due to known physiological condition; F01.51 Vascular dementia, unspecified severity, with behavioral disturbance; F32.9 Major depressive disorder, single episode, unspecified; Z66 Do not resuscitate; I10 Essential (primary) hypertension; E11.9 Type 2 diabetes mellitus without complications; G30.9 Alzheimer's disease, unspecified; Z86.73 Personal history of transient ischemic attack (TIA), and cerebral infarction without residual deficits; Z79.4 Long term (current) use of insulin; Z79.82 Long term (current) use of aspirin; S82.90XA Unspecified fracture of unspecified lower leg, initial encounter for closed fracture; X58.XXXA Exposure to other specified factors, initial encounter